=== PATIENT | female | born 1995 | race Caucasian/White ===

== ENCOUNTER 2017-05-01 04:11 | Emergency (ER) | payer MEDICAID ==
[~2017-05-01] VITALS: Ht 157.5 cm; Wt 50.0 kg
[2017-05-01 04:20] VITALS: BP 117/73; PULSE 104; RESP 18; TEMP 98.3; O2SAT 97
--- NOTE | 2017-05-01 04:25 | PD ---
HPI Chief Complaint: psychiatric evaluation Time Seen by Provider: 04:22 Travel History International Travel<30 days: No Contact w/Intl Traveler<30days: No History of Present Illness HPI Patient comes in under a police escort under a Langston act. Per Kian patient made suicidal statements. Patient denies any homicidal or suicidal ideations. Patient states that her boyfriend went behind her back and called the police claiming that she was making suicidal statements. Patient denies any concerns at this time. Denies any chest pain, shortness of breath, fevers, abdominal pain, or headaches. Patient is uncertain if she is or not. Patient denies anything making her symptoms better or worse. PFSH Past Medical History Medical History: Denies Significant Hx Social History Alcohol Use: Yes Tobacco Use: Yes Substance Use: No Allergies-Medications (Allergen,Severity, Reaction): Coded Allergies: Penicillin (Verified Allergy, Intermediate, Swelling, 05/01/17) Reported Meds & Prescriptions Reported Meds & Active Scripts Active No Active Prescriptions or Reported Medications Review of Systems Except as stated in HPI: all other systems reviewed are Neg Physical Exam Narrative GENERAL: Well-developed, well nourished, in no acute distress, and non-ill appearing. SKIN: Focused skin assessment warm and dry. HEAD: Atraumatic. Normocephalic. EYES: Pupils equal and round. EOMI. No scleral icterus. No injection or drainage. ENT: No nasal bleeding or discharge. Mucous membranes pink and moist. NECK: Trachea midline. Supple. No nuclear rigidity. CARDIOVASCULAR: Regular rate and rhythm. No murmur appreciated. RESPIRATORY: No accessory muscle use. No respiratory distress. Clear to auscultation. Breath sounds equal bilaterally. MUSCULOSKELETAL: No obvious deformities. No clubbing. No cyanosis. No edema. Full range of motion. NEUROLOGICAL: Awake and alert. No obvious cranial nerve deficits. Motor grossly within normal limits. Normal speech. PSYCHIATRIC: Appropriate mood and affect; insight and judgment normal. Data Data Last Documented VS Vital Signs Date Time Temp Pulse Resp B/P Pulse Ox O2 Delivery O2 Flow Rate FiO2 05/01/17 04:20 98.3 104 18 117/73 97 Orders Complete Blood Count With Diff (05/01/17 04:21) Comprehensive Metabolic Panel (05/01/17 04:21) Ed Urine Pregnancytest Poc (05/01/17 04:21) Psych Screen (05/01/17 04:21) Drug Screen, Random Urine (05/01/17 04:21) Alcohol (Ethanol) (05/01/17 04:21) Salicylates (Aspirin) (05/01/17 04:21) Tylenol (Acetaminophen) (05/01/17 04:21) Labs Laboratory Tests Test 05/01/17 04:25 White Blood Count 8.3 TH/MM3 Red Blood Count 4.53 MIL/MM3 Hemoglobin 13.4 GM/DL Hematocrit 39.1 % Mean Corpuscular Volume 86.4 FL Mean Corpuscular Hemoglobin 29.5 PG Mean Corpuscular Hemoglobin 34.2 % Concent Red Cell Distribution Width 12.7 % Platelet Count 222 TH/MM3 Mean Platelet Volume 10.3 FL Neutrophils (%) (Auto) 85.1 % Lymphocytes (%) (Auto) 11.6 % Monocytes (%) (Auto) 2.5 % Eosinophils (%) (Auto) 0.1 % Basophils (%) (Auto) 0.7 % Neutrophils # (Auto) 7.0 TH/MM3 Lymphocytes # (Auto) 1.0 TH/MM3 Monocytes # (Auto) 0.2 TH/MM3 Eosinophils # (Auto) 0.0 TH/MM3 Basophils # (Auto) 0.1 TH/MM3 CBC Comment DIFF FINAL Differential Comment Sodium Level 142 MEQ/L Potassium Level 3.7 MEQ/L Chloride Level 109 MEQ/L Carbon Dioxide Level 21.3 MEQ/L Anion Gap 12 MEQ/L Blood Urea Nitrogen 6 MG/DL Creatinine 0.83 MG/DL Estimat Glomerular Filtration 88 ML/MIN Rate Random Glucose 106 MG/DL Calcium Level 8.5 MG/DL Total Bilirubin 0.2 MG/DL Aspartate Amino Transf 16 U/L (AST/SGOT) Alanine Aminotransferase 29 U/L (ALT/SGPT) Alkaline Phosphatase 68 U/L Total Protein 8.1 GM/DL Albumin 4.3 GM/DL Salicylates Level 1.8 MG/DL Urine Opiates Screen NEG Acetaminophen Level LESS THAN 2.0 MCG/ML Urine Barbiturates Screen NEG Urine Amphetamines Screen NEG Urine Benzodiazepines Screen NEG Urine Cocaine Screen NEG Urine Cannabinoids Screen NEG Ethyl Alcohol Level 97 MG/DL MDM Medical Decision Making Medical Screen Exam Complete: Yes Emergency Medical Condition: Yes Differential Diagnosis Homicidal, suicidal, depression, electrolyte abnormality, other Narrative Course Patient was seen and examined. Labs were obtained and reviewed. Patient medically cleared for further treatment and evaluation by psych. Final disposition per psych. Diagnosis Primary Impression: Alcohol intoxication Qualified Code: F10.920 - Alcohol intoxication, uncomplicated Additional Impression: Medical clearance for psychiatric admission Scripts No Active Prescriptions or Reported Meds Condition: Jackson Ferguson May 01, 2017 04:25 Scripts No Active Prescriptions or Reported Meds Condition: Jackson Ferguson May 01, 2017 04:25
[2017-05-01 04:51] LABS: AMPHETAMINE, URINE NEG (NEG); BARBITURATES, URINE NEG (NEG); COCAINE, URINE NEG (NEG)
[2017-05-01 04:54] LABS: BASOPHIL # 0.1 TH/MM3 (0-0.2); BASOPHIL % 0.7 % (0.0-2.0); EOSINOPHIL % 0.1 % (0.0-4.0); HEMATOCRIT 39.1 % (35.0-46.0); HEMO FLAGS DIFF FINAL; LYMPH % 11.6 % (9.0-44.0); MEAN CELL VOLUME 86.4 FL (80.0-100.0); MEAN CORPUSCULAR HEMOGLOBIN 29.5 PG (27.0-34.0); MEAN CORPUSCULAR HGB CONC 34.2 % (32.0-36.0); MONO % 2.5 % (0.0-8.0); NEUT % 85.1 % (16.0-70.0); PLATELET COUNT 222 TH/MM3 (150-450); RED BLOOD COUNT 4.53 MIL/MM3 (4.00-5.30); RED CELL DISTRIBUTION WIDTH 12.7 % (11.6-17.2); WHITE BLOOD COUNT 8.3 TH/MM3 (4.0-11.0)
[2017-05-01 05:03] LABS: ANION GAP 12 MEQ/L (5-15)
[2017-05-01 05:18] LABS: ALKALINE PHOSPHATASE 68 U/L (45-117); ALT (GPT) 29 U/L (9-42); AST (GOT) 16 U/L (16-38); BICARBONATE 21.3 MEQ/L (21.0-32.0); BLOOD UREA NITROGEN 6 MG/DL (7-18); CHLORIDE 109 MEQ/L (98-107); GLOMERULAR FILTRATION RATE 88 ML/MIN (>89); POTASSIUM 3.7 MEQ/L (3.5-5.1); SODIUM (NA) 142 MEQ/L (136-145); TOTAL BILIRUBIN ADULT 0.2 MG/DL (0.2-1.0)
[2017-05-01 05:21] LABS: ACETAMINOPHEN LESS THAN 2.0 MCG/ML (10.0-30.0)
[2017-05-01 08:15] VITALS: BP 120/71; PULSE 99; RESP 18; TEMP 98.2; O2SAT 98
--- NOTE | 2017-05-01 15:42 | PD ---
History of Present Illness Chief Complaint: Psychiatric Symptoms Time Seen by Provider: 15:30 Travel History International Travel<30 Days: No Contact w/Intl Traveler<30days: No Known affected area: No Legal Status Legal Status: Langston Act Langston Act Signed By: Pravin Thao History of Present Illness: History of Present Illness HPI Patient is a 21 year old female with no previous psychiatric history who comes to ED under a Langston act. The report alleges that she had been arguing with her boyfriend and she went to another room and got her boyfriend's loaded gun and was holding it in her hand. her roommate became concerned and called the police. The patient had been drinking at the time and on arrival to ED her BAL was 97. She did not make any attempts at harming herself. The patient was monitored in [facility] pod and she did not present any behavioral concerns and no suicidality. EMR is reviewed and she has no prior contact with [facility] psychiatry dept. The patient is alert and oriented. Appears stated age. She is maintaining hygiene. She is clinically sober. She is calm. There is no symptom of anxiety or depression. She denies suicidal ideation, intent or plan. She admits that she had been drinking and she does not drink on a regular basis. She does not remember stating that she was going to harm herself and states ' I have no reason to harm myself. I will be starting school next month. I am only 21 years old and I want to live". Patient also expresses an interest initiating counseling services. I have contact her boyfriend Seth with her consent to obtain collateral information. at [phone]. H e reports he has secured the wepon and he has no concerns if she is discharged . He will pick her up. [facility] Past Medical History Medical History: Denies Significant Hx Diminished Hearing: No ?: Not LMP: 04/30/17 Past Surgical History Other Surgery: Yes (LEFT KNEE & LEG BIOPSY) Psychiatric History Psychiatric History Hx Psychiatric Treatment: None History of Inpatient Treatment: No Guns or firearms in home: Yes Social History Single female. Lives with boyfriend. 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 Hx Alcohol Use: Yes Hx Tobacco Use: Yes Hx Substance Use: Yes Substance Use Type: Alcohol Hx of Substance Use Treatment: No Family Psychiatric History Negative Allergies-Medications (Allergen,Severity, Reaction): Coded Allergies: Penicillin (Verified Allergy, Intermediate, Swelling, 05/01/17) Reported Meds & Prescriptions Reported Meds & Active Scripts Active No Active Prescriptions or Reported Medications Review of Systems Except as stated in HPI: all other systems reviewed are Neg Exam Alert: Yes [place]: Person (ox4) Mood: Calm Affect: Appropriate Speech: Clear, Logical Eye Contact: Normal Memory Intact: Comment (no impairment) Hallucinations: Other (negative) Delusions: No Suicidal: Ideation (deneis any) Homicidal: Ideation (Denies any) Insight/Judgement Fair. Not impaired. MDM Medical Decision Making Medical Record Reviewed: Yes Assessment/Plan Patient is a 21 year old female with no previous psychiatric history who comes to ED under a Langston act. The report alleges that she had been arguing with her boyfriend and she went to another room and got her boyfriend's loaded gun and was holding it in her hand. her roommate became concerned and called the police. The patient had been drinking at the time and on arrival to ED her BAL was 97. She did not make any attempts at harming herself. Once the patient was clinically sober she was examined and she presents no suicidal ideation, no homicidal ideation and no acute psychiatric symptomatology. The incident leading to BA involved alcohol which she reports she does not drink on a regular basis. The patient at this [facility] does not meet BA criteria. I have counseled her and recommend outpatient counseling. Discharge home. Orders Complete Blood Count With Diff (05/01/17 04:21) Comprehensive Metabolic Panel (05/01/17 04:21) Ed Urine Pregnancytest Poc (05/01/17 04:21) Psych Screen (05/01/17 04:21) Drug Screen, Random Urine (05/01/17 04:21) Alcohol (Ethanol) (05/01/17 04:21) Salicylates (Aspirin) (05/01/17 04:21) Tylenol (Acetaminophen) (05/01/17 04:21) Diet Regular Basic (05/01/17 Breakfast) Diet Regular Basic (05/01/17 Lunch) Results Vital Signs Date Time Temp Pulse Resp B/P Pulse Ox O2 Delivery O2 Flow Rate FiO2 05/01/17 08:15 98.2 99 18 120/71 98 Room Air 05/01/17 04:20 98.3 104 18 117/73 97 Laboratory Tests Test 05/01/17 04:25 White Blood Count 8.3 Red Blood Count 4.53 Hemoglobin 13.4 Hematocrit 39.1 Mean Corpuscular Volume 86.4 Mean Corpuscular Hemoglobin 29.5 Mean Corpuscular Hemoglobin 34.2 Concent Red Cell Distribution Width 12.7 Platelet Count 222 Mean Platelet Volume 10.3 Neutrophils (%) (Auto) 85.1 Lymphocytes (%) (Auto) 11.6 Monocytes (%) (Auto) 2.5 Eosinophils (%) (Auto) 0.1 Basophils (%) (Auto) 0.7 Neutrophils # (Auto) 7.0 Lymphocytes # (Auto) 1.0 Monocytes # (Auto) 0.2 Eosinophils # (Auto) 0.0 Basophils # (Auto) 0.1 CBC Comment DIFF FINAL Differential Comment Sodium Level 142 Potassium Level 3.7 Chloride Level 109 Carbon Dioxide Level 21.3 Anion Gap 12 Blood Urea Nitrogen 6 Creatinine 0.83 Estimat Glomerular Filtration 88 Rate Random Glucose 106 Calcium Level 8.5 Total Bilirubin 0.2 Aspartate Amino Transf 16 (AST/SGOT) Alanine Aminotransferase 29 (ALT/SGPT) Alkaline Phosphatase 68 Total Protein 8.1 Albumin 4.3 Salicylates Level 1.8 Urine Opiates Screen NEG Acetaminophen Level LESS THAN 2.0 Urine Barbiturates Screen NEG Urine Amphetamines Screen NEG Urine Benzodiazepines Screen NEG Urine Cocaine Screen NEG Urine Cannabinoids Screen NEG Ethyl Alcohol Level 97 Diagnosis Primary Impression: Alcohol intoxication Additional Impression: Medical clearance for psychiatric admission Psychiatrically Cleared: Yes Med/ Other Pt Specific Info: No Meds Exist/No RX given Prescriptions No Active Prescriptions or Reported Meds Disposition: DISCHARGE HOME Condition: Stable Problem Qualifiers Primary Impression: Alcohol intoxication Qualified Code: F10.920 - Alcohol intoxication, uncomplicated Fallon Infante [facility] May 01, 2017 15:42
== END 2017-05-01 16:02 | disposition home or self-care (01) ==
LOC: NEPD 04:11 → NEPJ 16:02
DX: F10.129 Alcohol abuse with intoxication, unspecified (principal); Z88.0 Allergy status to penicillin; Z72.0 Tobacco use
CPT/HCPCS: 80053; 80307; 84703; 85025; 99284